=== PATIENT | male | born 1945 | race Caucasian/White ===

== ENCOUNTER 2021-11-16 14:36 | Inpatient (IN) | payer MEDICARE ==
[~2021-11-16] VITALS: Ht 167.6 cm; Wt 82.9 kg
[2021-11-16 15:24] LABS: BASOPHILS ABSOLUTE AUTO 0.07 K/mm3 (0.00-0.23); BASOPHILS PERCENT AUTO 1 % (0-2); EOSINOPHILS PERCENT AUTO 2 % (0-6); Hematocrit 47.2 % (37.0-53.0); IMMATURE GRAN ABSOLUTE AUTO 0.04 K/mm3 (0.00-0.10); IMMATURE GRAN PERCENT AUTO 1 % (0-1); LYMPHOCYTES ABSOLUTE AUTO 2.15 K/mm3 (0.84-5.20); LYMPHOCYTES PERCENT AUTO 25 % (21-46); MONOCYTES ABSOLUTE AUTO 0.83 K/mm3 (0.16-1.47); MONOCYTES PERCENT AUTO 10 % (4-13); Mean Corpuscular HGB 29.1 pg (26.0-34.0); Mean Corpuscular HGB Conc 33.9 g/dL (31.5-36.5); Mean Corpuscular Volume 86 fL (80-100); Mean Platelet Volume 10.1 fL (9.1-12.4); NEUTROPHILS ABSOLUTE AUTO 5.26 K/mm3 (1.96-9.15); NEUTROPHILS PERCENT AUTO 62 % (41-73); Platelet Count 208 K/mm3 (150-400); RDW Standard Deviation 40.2 fL (35.1-46.3); White Blood Cell Count 8.55 K/mm3 (4.00-11.30)
[2021-11-16 17:10] LABS: Alanine Aminotransfer (ALT/SGP 23 U/L (12-78); Albumin, Blood 3.5 g/dL (3.4-5.0); Albumin/Globulin Ratio 1.1 (0.8-1.8); Alk Phos 68 U/L (50-136); Anion Gap 7 mmol/L (6-16); Aspartate Aminotrans (AST/SGOT 23 U/L (12-37); Bilirubin, Total 0.8 mg/dL (0.1-1.0); Blood Urea Nitrogen 14 mg/dL (8-24); Bun/Creatinine Ratio 11.3 (12.0-20.0); CO2, Blood 26 mmol/L (21-32); Calcium, Blood 9.1 mg/dL (8.5-10.1); Chloride, Blood 109 mmol/L (98-108); Creatinine, Blood 1.24 mg/dL (0.60-1.20); Ethanol (Alcohol), Blood, Med <3 mg/dL; Globulin, Blood 3.3 g/dL (2.2-4.0); Glomerular Filtration Rate 57 (60-); Glucose, Blood 93 mg/dL (70-99); Potassium, Blood 4.5 mmol/L (3.5-5.5); Sodium, Blood 142 mmol/L (136-145); Total Protein, Blood 6.8 g/dL (6.4-8.2)
--- NOTE | 2021-11-16 23:08 | NUR ---
PATIENT IS A NEW ADMIT FROM THE ED. ARRIVED VIA W/C AND SBA TRANSFER TO BED. AXOX 3 WITH CONFUSION AT TIMES. KNOWS PERSON, PLACE, PRESIDENT. NOT SURE HOW HE GOT HERE AND WHO TOOK HIM. DENIES CHEST PAIN, SOB, AND N/V. ON ROOM AIR. REPORTS [id number] PRESENT IN ED. ORIENTED TO ROOM AND CALL LIGHT SYSTEM. MILD ANXIETY. REPORTS WILL TRY TO SLEEP AFTER ASSESSMENT.
--- NOTE | 2021-11-17 02:05 | NUR ---
PATIENT OOB MULTIPLE TIMES W/O USING CALL LIGHT. ON BED ALARM. ONE ASSIST TO BR. KEITH.
--- NOTE | 2021-11-17 04:47 | NUR ---
SHIFT SUMMARY AXO 2-3. PATIENT CONTINUED TO BE CONFUSED PULLING AT TELEMETRY LEADS T/O SHIFT. IMPULSIVE GETTING OOB WITHOUT USING CALL LIGHT ACTIVATING BED ALARM. ONE ASSIST TO BR. SR. UNIX SYSTEM ADMINISTRATOR STRONG AND EQUAL. PIV REMAINS INTACT. TELEMETRY IS BRITNEY 59 AND REPORTS HE AVERAGES IN THE HIGH 40'S. VSS/AFEBRILE. DENIES CHEST PAIN, SOB, AND N/V. TALKED TO CEMENTER HELPER ABOUT GOLFING. GOING THROUGH HIS BELONGINGS AND REMINDED HIM HE COULD SLEEP FOR ANOTHER THREE HOURS. CALL LIGHT IN REACH. BED IN LOWEST POSITION AND ALARM ACTIVATED. WCTM.
[2021-11-17 05:43] LABS: Bun/Creatinine Ratio 11.4 (12.0-20.0); Calcium, Blood 8.7 mg/dL (8.5-10.1); Creatinine, Blood 1.32 mg/dL (0.60-1.20); Potassium, Blood 3.8 mmol/L (3.5-5.5)
--- NOTE | 2021-11-17 11:02 | NUR ---
PATIENT CONTINUES TO HAVE CONFUSION. THIS MORNING WHILE TAKING MORNING MEDS, HE DIDN'T THINK HE'D BE ABLE TO SWALLOW HIS PILLS BECASUE THERE WAS NO WATER IN THE 30CC MED CUP THAT HIS PILLS WERE IN, AND THIS UI ARCHITECT HAD JUST SET DOWN A FULL WATER CUP WITH A STRAW IN FRONT OF HIM. HE CONTINUOUSLY PULLS OFF HIS TELEMETRY. PATIENT STATES THAT HE IS GOING TO DRIVE HOME LATER. HE IS UNAWARE OF HIS SITUATION AND HE ASKED WHAT TIME THIS OFFICE CLOSES AND STATES IT MUST BE OPEN -. HE IS SITTING IN HIS BED QUIETLY NOW, AFTER BRUSHING TEETH. WHEN THIS UI ARCHITECT WALKED INTO HIS ROOM, HE STILL HAD A FULL MOUTH OF TOOTHPASTE IN HIS MOUTH THAT HE FORGOT TO RINSE AND SPIT OUT. HE WAS ASSISTED TO FINISH.
[2021-11-17 14:57] LABS: CHOL/HDL RATIO 3.9; Cholesterol 164 mg/dL (50-200); HDL Cholesterol 42 mg/dL (>39); LDL/HDL RATIO 2.3; Low Density Lipoprotein Chol 95 mg/dL (0-110); Triglycerides 134 mg/dL (30-160); Very Low Density Lipoprot Chol 26 mg/dL (6-32)
--- NOTE | 2021-11-17 17:46 | NUR ---
PATIENT WANDERING, NOT WILLING TO STAY IN ROOM. HE WALKS GOOD, BUT HAS A DEFINENT WOBBLE WHEN MOVING TO CHANGE DIRECTION. PATIENTS FACE DOES APPEAR TO BE SLIGHTLY OFF, WITH A POSSIBLE RIGHT SIDED FACIAL DROOP. ONLY NOTICABLE WHEN HE SMILES BIG POSSIBLE WITH DIRECTION AND WHEN WILLING TO COMPLY. PATIENT STILL KNOWS THE YEAR. HE THINKS HE IS IN [place] [place]. HE IS UNABLE TO ANSWER THE QUESTION 'WHAT TYPE BUSINESS ARE WE IN' HIS ANSWER MAKES NO SENSE. PATIENT HAS EQUAL STRENGTH RIGHT AND LEFT EXTREMITIES. CAN STICK TONGUE OUT AND SIDE TO SIDE EQUAL. CONFUSION AND SOME ANXIETY PRESENT. HE IS STILL AWARE THAT HIS WALLET WAS GIVEN TO SECURITY (CALLS THEM MANAGERS). WE ARE GOING TO CALL THE FOR SOFT RESTRAIN ORDER, DUE TO WANDERING AND UNSTEADY GAIT.
--- NOTE | 2021-11-17 18:50 | NUR ---
PATIENT CURRENTLY IN [place] VEST, LYING IN HIS BED. THIS CAME ABOUT DUE TO WANDERING WITH AN UNSTEADY GAIT AND NOT BEING REDIRECTABLE TO SIT DOWN, OR LIE IN BED. PATIENT HAS SHOWN NO AGGRESSION, BUT APPEARS IRRITATED WTIH THE INABILITY TO GET UP AND MOVE ABOUT HE WISHES. TELE WAS REMOVED THIS AM, AFTER PATIENT PULLING THE LEADS OFF REPEATEDLY.
--- NOTE | 2021-11-18 02:57 | NUR ---
PATIENT PULLED TELEMETRY OFF WHILE IN WRIST RESTRAINTS. PATIENT OOB ATTEMPT, ON CAMERA. NOT ABLE TO REORIENT AT THIS TIME. BACK IN BED AND RESTRAINTS ON.
--- NOTE | 2021-11-18 04:31 | NUR ---
SHIFT SUMMARY PATIENT AXOX 2 WITH CONFUSION. SLIGHTLY DECREASED MENTATION THIS SHIFT VS LAST NOC SHIFT. UNSTEADY GAIT TO BR WITH ONE ASSIST. NOT FOLLOWING DIRECTIONS AND NOT EASILY REDIRECTABLE. IN [place] VEST AND BILATERAL SOFT WRIST RESTRAINTS PULLING AT TELEMETRY LINES AND OOB ATTEMPTS. AGRESSIVE TOWARDS STAFF AT TIMES WANTING TO SWING ARMS/PUNCH. ON CAMERA. GLUING MACHINE ADJUSTER REPORTS BRITNEY, HR DIPS DOWN TO HIGH 30'S AND BACK INTO THE 40'S WHILE SLEEPING. DENIES CHEST PAIN, SOB, AND N/V. VSS/AFEBRILE. CALL LIGHT IN REACH. BED IN LOWEST POSITION AND ALARM ACTIVATED. WILL CONTINUE TO MONITOR UNTIL DAY SHIFT NURSE ASSUMES CARE.
[2021-11-18 05:08] LABS: Albumin, Blood 3.5 g/dL (3.4-5.0); Anion Gap 9 mmol/L (6-16); Blood Urea Nitrogen 18 mg/dL (8-24); Bun/Creatinine Ratio 15.3 (12.0-20.0); CO2, Blood 23 mmol/L (21-32); Calcium, Blood 8.8 mg/dL (8.5-10.1); Chloride, Blood 106 mmol/L (98-108); Creatinine, Blood 1.18 mg/dL (0.60-1.20); Glomerular Filtration Rate >60 (60-); Glucose, Blood 98 mg/dL (70-99); Phosphorus, Blood 2.6 mg/dL (2.5-4.9); Potassium, Blood 3.8 mmol/L (3.5-5.5); Sodium, Blood 138 mmol/L (136-145)
--- NOTE | 2021-11-18 05:15 | NUR ---
PATIENT BECOMING INCREASINGLY COMBATIVE. YELLING AND TRYING TO KICK STAFF. BILATERAL SOFT WRIST RESTRAINTS AND [place] VEST PER ORDER IN PLACE. PATIENT PULLS OUT OF VEST AT TIMES. ON CAMERA. TM.
[2021-11-18] MEDS ORDERED: BUSP5 PO (09:05)
[2021-11-18] MEDS ORDERED: ASPI81CH PO (09:06)
[2021-11-18] MEDS ORDERED: ATEN25 PO (09:07)
[2021-11-18] MEDS ORDERED: ATOR10 PO (09:08)
[2021-11-18] MEDS ORDERED: DOXA1 PO (09:08)
[2021-11-18] MEDS ORDERED: Lisinopril2.5 MG PO (09:11)
[2021-11-18] MEDS ORDERED: TIMO.5OPSO BOTHEYES (09:12)
--- NOTE | 2021-11-18 13:02 | NUR ---
DISCHARGE SUMMARY PATIENT IS ALERT AND ORIENTED TO SELF. PATIENT HAS HAD NO COMPLAINTS OF NAUSEA, SOB, PAIN OR VOMITTING THIS SHIFT. PATIENT HAS HAD NO ACUTE EVENTS THIS SHIFT. VITAL SIGNS REVIEWED. PATIENTS SON PICKED UP PATIENT AND TRANSPORTED PATIENT TO PATIENTS CAR WITH [address] PATIENTS SON WAS READ DISCHARGE INSTRUCTIONS AND ALL BELONGINGS WERE RETURNED TO PATIENTS SON AND GIVEN SECURITY TAG FOR LOCKED BELONGINGS.
== END 2021-11-18 13:43 | disposition home or self-care (01) | DRG 69 ==
LOC: ER 14:36 → EDBEDREQTM 19:56 → EDBEDREQSVC 19:56 → EDBEDREQ 19:56 → MEDS 20:07 → ER 20:07 → MEDS 21:06
PROVIDERS: Emergency Medicine; Internal Medicine; ADMIT Internal Medicine
DX: G45.9 Transient cerebral ischemic attack, unspecified (principal); R47.01 Aphasia; N17.9 Acute kidney failure, unspecified; F41.9 Anxiety disorder, unspecified; I10 Essential (primary) hypertension; R00.1 Bradycardia, unspecified; G31.1 Senile degeneration of brain, not elsewhere classified; F02.80 Dementia in other diseases classified elsewhere, unspecified severity, without behavioral disturbance, psychotic disturbance, mood disturbance, and anxiety; Z79.899 Other long term (current) drug therapy
CPT/HCPCS: 36415; 70450; 71045; 80048; 80053; 80061; 80069; 82947; 85025; 93005; 93010; 93880; 96372; 99285-25; A9270; G0378; G0480; J1650